=== PATIENT | female | born 1985 | race African-American/Black ===

== ENCOUNTER 2020-10-07 07:26 | Outpatient (CLI) | payer OTHER ==
[~2020-10-07] VITALS: Ht 167.6 cm; Wt 71.3 kg
[2020-10-07 09:02] VITALS: BP 112/58
[2020-10-07 09:04] LABS: BASO % 1 % (0-3); EOS % 1 % (0-3); HEMATOCRIT 31.3 % (36.0-47.0); HEMOGLOBIN 10.5 g/dL (12.0-15.5); LYMPH # 1.1 x10^3/uL (1.0-4.8); LYMPH % 35 % (24-48); MEAN CORPUSCULAR HEMOGLOBIN 27 pg (25-35); MEAN CORPUSCULAR HGB CONC 34 g/dL (31-37); MEAN CORPUSCULAR VOLUME 81 fL (79-100); MONO # 0.2 x10^3/uL (0.0-1.1); MONO % 6 % (0-9); NEUT # 1.8 x10^3/uL (1.8-7.7); NEUT % 57 % (31-73); PLATELET COUNT 191 x10^3/uL (140-400); RED BLOOD COUNT 3.87 x10^6/uL (3.50-5.40); RED CELL DISTRIBUTION WIDTH 16.1 % (11.5-14.5); WHITE BLOOD COUNT 3.2 x10^3/uL (4.0-11.0)
[2020-10-07 09:13] LABS: PROTHROMBIN TIME PATIENT 14.8 SEC (11.7-14.0)
[2020-10-07] MEDS ORDERED: PREN1TAB99 PO (09:14)
[2020-10-07] MEDS ORDERED: POLY17PO29 PO (09:14)
[2020-10-07] MEDS ORDERED: LIDOCAINE WITH 8.4% SOD BICARB 3 ML DISP.SYRIN. ONE (09:16)
[2020-10-07] MEDS ORDERED: LIDOCAINE WITH 8.4% SOD BICARB 3 ML DISP.SYRIN. INJ ONE (10:30)
[2020-10-07 10:31] VITALS: BP 116/56
[2020-10-07 10:46] VITALS: BP 115/63
--- NOTE | 2020-10-07 11:00 | NUR ---
Discharge Note: KELLE CORONEL Discharge instructions and discharge home medications reviewed with Patient and a copy given. All questions have been answered and understanding verbalized. The following instructions and handouts were given: BIOPSY AFTER CARE LEFT AXILLA BANDAID INTACT.. Patient discharged to HOME, ACCOMPANIED BY SPOUSE.
--- NOTE | 2020-10-07 13:21 | RAD ---
Site ID: [id number] EXAMINATION: Ultrasound Guidance (CPT 80722) Biopsy-axillary lymph node CPT 29776. INDICATION: Left axilla enlarged lymph nodes. SEDATION: No sedation Current history and physical and other medical records are reviewed prior to the procedure. CONSENT: Informed consent was obtained. The risks, benefits, potential complications and alternatives were reviewed and all questions answered. PROCEDURE: After maximal sterile barrier technique preparation and draping, 1% lidocaine was utilized for local anesthesia. With the patient in supine position, and via left lateral approach, a 17-gauge guide needle is introd uced into the left axillary lymph nodes under ultrasound scan guidance. After confirming adequate pos itioning with saved ultrasound images, multiple 18 gauge core biopsy specimens were obtained. The patient tolerated the procedure well with no immediate complications. FINDINGS: Enlarged left axillary nodes. IMPRESSION: Successful ultrasound guided biopsy of left axillary lymph node. Electronically signed by: Eleazar Penaloza MD (10/07/2020 1:19 PM) [id number]
--- NOTE | 2020-10-07 13:21 | RAD ---
Site ID: [id number] EXAMINATION: Ultrasound Guidance (CPT 86216) Biopsy-axillary lymph node CPT 89598. INDICATION: Left axilla enlarged lymph nodes. SEDATION: No sedation Current history and physical and other medical records are reviewed prior to the procedure. CONSENT: Informed consent was obtained. The risks, benefits, potential complications and alternatives were reviewed and all questions answered. PROCEDURE: After maximal sterile barrier technique preparation and draping, 1% lidocaine was utilized for local anesthesia. With the patient in supine position, and via left lateral approach, a 17-gauge guide needle is introd uced into the left axillary lymph nodes under ultrasound scan guidance. After confirming adequate pos itioning with saved ultrasound images, multiple 18 gauge core biopsy specimens were obtained. The patient tolerated the procedure well with no immediate complications. FINDINGS: Enlarged left axillary nodes. IMPRESSION: Successful ultrasound guided biopsy of left axillary lymph node. Electronically signed by: Eleazar Penaloza MD (10/07/2020 1:19 PM) [id number]
--- NOTE | 2020-10-11 17:14 | PATHOLOGY ---
[facility] Accession Number: [id number] . 01 Material submitted: . lymph node - LEFT AXILLA LYMPH NODE. Modifiers: left . 01 Clinical history: . ENLARGED LEFT LYMPH NODE . 02 Diagnosis: Segments of lymph node and perinodal fibroadipose tissue, left axillary lymph node needle biopsies: - Reactive lymphoid hyperplasia. See comment. LBQ 10/11/2020 1503 Local . 02 Comment: Sections of the left axillary lymph node needle biopsy reveal segments of lymph node and perinodal fibroadipose tissue. There are multiple lymphoid follicles present. The lymphoid follicles possess germinal centers of varying size and shape containing tingible body macrophages. The germinal centers are surrounded by a mantle of small lymphocytes. The paracortical areas between the follicles reveal a predominance of small lymphocytes. There is focal preservation of lymph node sinuses. There are focally admixed plasma cells. There is no atypical large lymphoid cell proliferation. There are no Jaret-Jasper cells. There are no granulomas. There is no evidence of metastatic carcinoma. . A portion of the specimen submitted for flow cytometric analysis has a viability of 97.6%. Lymphocytes comprise 99.0% of total cells. T-cells comprise 54% of lymphoid cells and show a CD4/CD8 ratio of 2.9. NK-cells comprise 1% of lymphoid cells. Mature B-cells comprise 43% of lymphoid cells and are polyclonal with a kappa:lambda ratio of 2.0. Plasma cells comprise 1.4% of total cells and show unremarkable surface marker expression. . To confirm flow cytometric findings and characterize the target cells in a tissue architectural context, a panel of immunoperoxidase stains and in situ hybridization for kappa and lambda light chain are obtained on block A2 and yield the following results: . CD20: Lymphoid follicles: Positive PAX5: Lymphoid follicles: Positive CD3: Paracortical lymphoid cells: Positive CD5: Paracortical lymphoid cells: Positive CD23: Dendritic reticulum cells of lymphoid follicles positive CD10: Germinal center lymphoid cells of lymphoid follicles positive BCL2: Lymphoid cells of follicle centers negative; paracortical lymphoid cells positive BCL6: Lymphoid cells of follicle centers positive Cyclin D1: Lymphoid cells negative CD30: No CD30 positive atypical large cell proliferation present CD138: Plasma cells positive having a scattered and focally clustered distribution [place] and lambda ALIYA: Plasma cells appear polyclonal . The morphologic and immunophenotypic findings are supportive of the diagnosis of reactive lymphoid hyperplasia. There is no evidence of malignancy. (JPM/db; 10/11/2020) . Immunoperoxidase stains performed are CD20, PAX5, CD3, CD5, CD23, CD10, BCL2, BCL6, Cyclin D1, CD30, and CD138 on A2. In situ hybridization for kappa ALIYA and lambda ALIYA on A2 . 02 Electronically signed: . Juan J Chand MD, Pathologist NPI- [id number] . 01 Gross description: . The specimen is received in formalin, labeled "Renetta Kilpatrick, left axilla lymph node". Received are six needle cores of pale montoya tissue ranging in length from 0.3-1.1 cm, with each measuring 0.1 cm in diameter. The specimen is submitted entirely in cassettes A1 through A3. ([facility]; 10/07/2020) QA/QAC 10/07/2020 1438 Local . 02 Pathologist provided ICD-10: R59.9 . 02 CPT . 744175, [id number], L85168, [id number], [id number] Specimen Comment: Report sent to Performed at: [facility] [address], [place] [id number] MD Raudel Underwood MD Phone: [phone] [facility]formed at: [facility] [address] [place], [place] [id number] MD Juan J Chand MD Phone: [phone]
== END 2020-10-07 11:05 | disposition home or self-care (01) ==
LOC: INTRAD 07:26
PROVIDERS: ATTEND Clinical Nurse Specialist Family Health
DX: R59.0 Localized enlarged lymph nodes (principal); R59.9 Enlarged lymph nodes, unspecified; Z98.51 Tubal ligation status; Z98.890 Other specified postprocedural states; Z79.899 Other long term (current) drug therapy; Z88.1 Allergy status to other antibiotic agents
CPT/HCPCS: 36415; 38505; 76942; 85025; 85610; J3490; 88184; 88185